=== PATIENT | male | born 1940 | race Hispanic/Latino ===

== ENCOUNTER 2019-10-08 06:43 | Day surgery (SDC) | payer OTHER ==
[~2019-10-08] VITALS: Ht 172.7 cm; Wt 77.1 kg
[~2019-10-08 06:43] MED LIST: ATOR40TA71 PO; METO-391 PO; SODIUM CHLORIDE 0.9% 1000ML 1,000 ML IV ONE; TAMS0.4C32 PO; WARF4TAB41 PO
[2019-10-08 08:02] LABS: INR 1.3 (0.85-1.15); PROTHROMBIN TIME 13.5 SEC (9.6-11.6)
[2019-10-08] MEDS ORDERED: ENOX40DI9 SQ (08:23)
[2019-10-08] MEDS ORDERED: PROPOFOL 10 MG/ML 20ML VIAL IV ONE (08:38)
[2019-10-08 08:46] VITALS: BP 82/47
[2019-10-08 08:51] VITALS: BP 87/52
[2019-10-08 08:56] VITALS: BP 110/61
[2019-10-08 09:01] VITALS: BP 115/63
[2019-10-08 09:06] VITALS: BP 112/67
== END 2019-10-08 09:15 | disposition home or self-care (01) ==
LOC: DAH 06:43 → ENDO 06:43
PROVIDERS: ATTEND Internal Medicine Gastroenterology
DX: K92.1 Melena (principal); K29.50 Unspecified chronic gastritis without bleeding; K22.8 Other specified diseases of esophagus; I10 Essential (primary) hypertension; Z79.899 Other long term (current) drug therapy; Z79.01 Long term (current) use of anticoagulants; E78.5 Hyperlipidemia, unspecified; Z90.49 Acquired absence of other specified parts of digestive tract; Z95.0 Presence of cardiac pacemaker; Z98.890 Other specified postprocedural states
CPT/HCPCS: 36415; 43239; 85610; 88305; A4215; A4221; A4222; A4223; A4620; A4663; J2704; J7030

== ENCOUNTER 2023-04-06 07:51 | Day surgery (SDC) | payer MEDICARE ==
[2023-04-04 12:38] LABS: BASOPHILS # (AUTO) 0.06 K/uL (0.00-0.20); BASOPHILS % (AUTO) 0.7 % (0.0-5.0); EOSINOPHILS # (AUTO) 0.01 K/uL (0.00-0.70); EOSINOPHILS % (AUTO) 0.1 % (0.0-8.0); HEMATOCRIT 46.3 % (42-54); IMMATURE GRANULOCYTE ABSOLUTE 0.02 K/uL (0-1); LYMPHOCYTES # (AUTO) 1.5 K/uL (1.0-4.8); LYMPHOCYTES % (AUTO) 16.9 % (21.0-51.0); MEAN CORPUSCULAR HGB CONC 34.1 g/dL (32.0-36.0); MEAN CORPUSCULAR VOLUME 93.9 fL (79-99); MONOCYTES # (AUTO) 1.1 K/uL (0.1-1.0); MONOCYTES % (AUTO) 12.2 % (3.0-13.0); NEUTROPHILS # (AUTO) 6.2 K/uL (1.8-7.7); NEUTROPHILS % (AUTO) 69.9 % (40.0-77.0); PLATELET COUNT (AUTO) 223 K/uL (130-400); RED BLOOD CELL COUNT(AUTO) 4.93 MIL/uL (4.50-6.20); RED CELL DISTRIBUTION WIDTH 13.4 % (11.0-15.5); WHITE BLOOD COUNT (AUTO) 8.9 K/uL (4.8-10.8)
[2023-04-04 12:53] LABS: INR 1.35 (0.85-1.15); PROTHROMBIN TIME 15.4 SEC (9.6-11.6)
[2023-04-04 12:54] LABS: PARTIAL THROMBOPLASTIN TIME 34.3 SEC (26.3-35.5)
[2023-04-04 12:59] LABS: CREATININE 1.1 mg/dL (0.5-1.5); POTASSIUM 4.8 mmol/L (3.5-5.1)
[2023-04-04 13:23] LABS: B-TYPE NATRIURETIC PEPTIDE 62 pg/mL (0-100)
[2023-04-04 15:43] VITALS: BP 123/69; PULSE 70; RESP 20
[~2023-04-06] VITALS: Ht 172.7 cm; Wt 75.0 kg
[2023-04-06] VITALS (8 sets, daily range): BP systolic 103–137; BP diastolic 56–70; PULSE 62–72; RESP 13–17
[~2023-04-06 07:51] MED LIST changes: -ATOR40TA71 PO; +CHOL200013 PO; +ENOX60DI8 SQ; +FEXO-263 PO; +ROSU20TA73 PO; -SODIUM CHLORIDE 0.9% 1000ML 1,000 ML IV ONE; +VITAMIN B12 PO; +WARF3TAB59 PO; -WARF4TAB41 PO
[2023-04-06] MEDS ORDERED: 0.9%NACL 1000ML 1,000 ML IV ONE (11:51)
[2023-04-06] MEDS ORDERED: CEFAZOLIN SODIUM 1 GM VIAL ONE (12:03)
[2023-04-06] MEDS ORDERED: LIDOCAINE HCL 1% MDV 50ML VIAL ONE (12:04)
[2023-04-06] MEDS ORDERED: BUPIVACAINE/PF 0.25% 30ML VIAL IJ ONE (12:04)
[2023-04-06] MEDS ORDERED: FENTANYL CITRATE PF 50 MCG/1 ML 2ML VIAL ONE ×2 (12:22→13:07)
[2023-04-06] MEDS ORDERED: MIDAZOLAM HCL 1 MG/ML 2ML VIAL ONE ×2 (12:22→13:07)
[2023-04-06] MEDS ORDERED: THROMBIN-JMI 5000 UNIT/VIAL TP ONE (13:04)
[2023-04-06] MEDS ORDERED: OCTYL 2-CYANOACRYLATE 1 EACH TP ONE ×2 (13:18→13:40)
[2023-04-06] MEDS ORDERED: ONDANSETRON 4MG INJ IV PRN (14:00)
[2023-04-06] MEDS ORDERED: ENOXAPARIN SODIUM 60 MG/0.6 ML SQ ONE (14:00)
== END 2023-04-06 16:58 | disposition home or self-care (01) ==
LOC: DAH 07:51
PROVIDERS: ATTEND Internal Medicine Interventional Cardiology
DX: Z45.010 Encounter for checking and testing of cardiac pacemaker pulse generator [battery] (principal); I48.11 Longstanding persistent atrial fibrillation; G60.8 Other hereditary and idiopathic neuropathies; M79.609 Pain in unspecified limb; E78.2 Mixed hyperlipidemia; I34.81 Nonrheumatic mitral (valve) annulus calcification; Z95.2 Presence of prosthetic heart valve; Z79.899 Other long term (current) drug therapy; Z79.01 Long term (current) use of anticoagulants
CPT/HCPCS: 80048; 83880; 85025; 85610; 85730; 36415; 71045 ×2; 93005; 33228; C1785; J3010 ×2; J0690; J7030; J3490 ×3; J2250 ×2; J1650; A4215; A4222; A4221; A4663; A4216; A4606; A4223 ×3; 99156; 99157

== ENCOUNTER → 2024-06-18 | Outpatient (CLI) | payer MEDICARE ==
[~2024-06-18] MED LIST changes: -ROSU20TA73 PO; +ROSU20TA98 PO
== END | disposition home or self-care (01) ==
LOC: RAH 12:35
PROVIDERS: ATTEND Urology
DX: N32.89 Other specified disorders of bladder (principal); R31.29 Other microscopic hematuria
CPT/HCPCS: 76770

== ENCOUNTER → 2024-09-27 | Outpatient (CLI) | payer MEDICARE ==
[2024-09-27 11:11] LABS: BASOPHILS # (AUTO) 0.05 K/uL (0.00-0.20); BASOPHILS % (AUTO) 0.5 % (0.0-5.0); EOSINOPHILS # (AUTO) 0.09 K/uL (0.00-0.70); HEMATOCRIT 45.7 % (42-54); IMMATURE GRANULOCYTE ABSOLUTE 0.04 K/uL (0-1); LYMPHOCYTES # (AUTO) 1.1 K/uL (1.0-4.8); LYMPHOCYTES % (AUTO) 11.5 % (21.0-51.0); MEAN CORPUSCULAR HEMOGLOBIN 33.7 pg (27.0-33.0); MEAN CORPUSCULAR HGB CONC 34.4 g/dL (32.0-36.0); MEAN CORPUSCULAR VOLUME 98.1 fL (79-99); MONOCYTES # (AUTO) 0.9 K/uL (0.1-1.0); MONOCYTES % (AUTO) 9.1 % (3.0-13.0); NEUTROPHILS # (AUTO) 7.3 K/uL (1.8-7.7); NEUTROPHILS % (AUTO) 77.5 % (40.0-77.0); PLATELET COUNT (AUTO) 198 K/uL (130-400); RED BLOOD CELL COUNT(AUTO) 4.66 MIL/uL (4.50-6.20); RED CELL DISTRIBUTION WIDTH 13.2 % (11.0-15.5); WHITE BLOOD COUNT (AUTO) 9.4 K/uL (4.8-10.8)
[2024-09-27 11:17] LABS: CREATININE 0.9 mg/dL (0.5-1.3); POTASSIUM 4.2 mmol/L (3.5-5.1)
== END | disposition home or self-care (01) ==
LOC: LAB 10:33
PROVIDERS: ATTEND Urology
DX: C67.2 Malignant neoplasm of lateral wall of bladder (principal); R31.0 Gross hematuria
CPT/HCPCS: 36415; 80048; 85025

== ENCOUNTER → 2024-09-28 | Outpatient (CLI) | payer MEDICARE ==
[~2024-09-28] MED LIST changes: +IOHEXOL 350 MG/ML 100ML INFUS..BTL IV ONE
--- NOTE | 2024-09-28 11:33 | HMCIMG ---
CT UROGRAM (ABD/PEL WWO) REASON: Malignant neoplasm of lateral wall of bladder COMPARISON: None TECHNIQUE: CT urogram was performed before and after IV contrast. Multiple postcontrast acquisitions were performed at 5 minute intervals through 20 minutes. 2-D reconstruction images were performed as well as maximum pixel intensity projection technique for urogram. Contrast volume was 100 cc Omnipaque 350. FINDINGS: Precontrast images show clear lung bases. There are no focal liver lesions. Spleen and kidneys appear normal. There are multiple very small stones in an otherwise normal-appearing gallbladder. Pancreas is unremarkable. Bowel loops appear normal. There is no retroperitoneal or pelvic lymphadenopathy. There is no free air or fluid. There are no focal fluid collections. Pelvic portion of the exam shows enlarged prostate at 5.6 x 7.1 x 7.2 cm. Urinary bladder was initially nondistended. Subsequent images demonstrate the progressive distention of the urinary bladder. There is a large show indentation on the base of the bladder from the enlarged prostate. There is some wall thickening anteriorly. There is no evidence of mass or ulcer. There is no diverticulum. Kidneys and ureters appear normal throughout. IMPRESSION: 1. Markedly enlarged prostate. 2. Normal-appearing kidneys and ureters, the urinary bladder appears otherwise unremarkable as well. 3. Cholelithiasis without evidence of acute cholecystitis. Otherwise unremarkable CT abdomen and pelvis with CT urogram technique.
== END | disposition home or self-care (01) ==
LOC: RAH 09:22
PROVIDERS: ATTEND Urology
DX: C67.2 Malignant neoplasm of lateral wall of bladder (principal); N40.0 Benign prostatic hyperplasia without lower urinary tract symptoms; K80.20 Calculus of gallbladder without cholecystitis without obstruction; R31.0 Gross hematuria
CPT/HCPCS: 74178; Q9967